=== PATIENT | female | born 1990 | race Caucasian/White ===

== ENCOUNTER 2019-09-03 00:15 | Emergency (ER) | payer SELFPAY ==
[2019-09-03] MEDS ORDERED: AMOXICILLIN/K CLAV 875/125MG TAB PO ONE (03:18)
[2019-09-03] MEDS ORDERED: ACETAMINOPHEN 500 MG TAB PO ONE (03:18)
[2019-09-03 04:16] LABS: Bacteria,Urine 1+ /HPF (Negative); Bilirubin,Urine NEG (Negative); Blood,Urine SM (Negative); Color,Urine Yellow (Yellow); Mucus,Urine 2+ /HPF; Protein,Urine <15 mg/dL mg/dL (Negative)
[2019-09-03 04:17] LABS: HCG Qualitative,Urine Negative (Negative)
--- NOTE | 2019-09-03 04:38 | Emergency Department Report ---
ED General Adult HPI - General Chief complaint: Dental/Oral Stated complaint: MOUTH PAIN Source: patient Mode of arrival: Ambulatory Limitations: No Limitations - History of Present Illness Initial comments: Patient is a 29-year-old white female with a history of CHF and endocarditis who presents to the ED with complaint of acute onset persistent severe painful swelling left mandibular gums and multiple dental caries as well as severely painful left mandibular premolar molar toothache for the last 1 week, worse in the last 2 days. Patient stated that she was unable to sleep tonight because of severe pain in the left mandible. Patient denies fever, chills, cough, chest pain, shortness of breath, headache, dizziness, syncope, sore throat, abdominal pain, nausea and vomiting. MD Complaint: swollen gums; dental pain -: Sudden, week(s) (1) Location: mouth Radiation: non-radiation Severity scale (0 -10): 6 Quality: aching, sharp Consistency: constant Improves with: none Worsens with: eating Associated Symptoms: denies other symptoms. denies: confusion, chest pain, cough, diaphoresis, fever/chills, headaches, loss of appetite, malaise, nausea/vomiting, rash, seizure, shortness of breath, syncope, weakness, other Treatments Prior to Arrival: none - Related Data Previous Rx's Medication Instructions Recorded Last Taken Type Clindamycin [Clindamycin CAP] 300 mg PO Q8HR #60 capsule 09/03/19 Unknown Rx Ketorolac [Toradol] 10 mg PO Q8H PRN #20 tablet 09/03/19 Unknown Rx Allergies Allergy/AdvReac Type Severity Reaction Status Date / Time diphenhydramine HCl Allergy Unknown Verified 01/28/16 00:34 [From Benadryl] ED Review of Systems ROS: Stated complaint: MOUTH PAIN Other details as noted in HPI Constitutional: denies: chills, fever Eyes: denies: eye pain, eye discharge, vision change ENT: throat pain (Swollen, painful left mandibular gums and premolar molar toothaches). denies: ear pain Respiratory: denies: cough, shortness of breath, wheezing Cardiovascular: denies: chest pain, palpitations Endocrine: no symptoms reported Gastrointestinal: denies: abdominal pain, nausea, diarrhea Genitourinary: denies: urgency, dysuria, discharge Musculoskeletal: denies: back pain, joint swelling, arthralgia Skin: denies: rash, lesions Neurological: denies: headache, weakness, paresthesias Psychiatric: denies: anxiety, depression Hematological/Lymphatic: denies: easy bleeding, easy bruising ED Past Medical Hx - Past Medical History Previous Medical History?: Yes Hx Congestive Heart Failure: Yes Additional medical history: Endocarditis - Surgical History Past Surgical History?: Yes Additional Surgical History: C-sections - Social History Smoking Status: Current Every Day Smoker Substance Use Type: None - Medications Home Medications: Home Medications Medication Instructions Recorded Confirmed Last Taken Type Clindamycin [Clindamycin CAP] 300 mg PO Q8HR #60 capsule 09/03/19 Unknown Rx Ketorolac [Toradol] 10 mg PO Q8H PRN #20 tablet 09/03/19 Unknown Rx ED Physical Exam - General Limitations: No Limitations General appearance: alert, in no apparent distress - Head Head exam: Present: atraumatic, normocephalic, normal inspection - Eye Eye exam: Present: normal appearance, PERRL, EOMI Pupils: Present: normal accommodation - ENT ENT exam: Present: mucous membranes moist, TM's normal bilaterally, normal external ear exam, other (Severely tender left mandibular premolar and molar teeth, severely tender swollen left mandibular gingiva) - Neck Neck exam: Present: normal inspection, full ROM, lymphadenopathy - Respiratory Respiratory exam: Present: normal lung sounds bilaterally. Absent: respiratory distress, wheezes, rales, rhonchi, chest wall tenderness, accessory muscle use, decreased breath sounds, prolonged expiratory - Cardiovascular Cardiovascular Exam: Present: normal rhythm, tachycardia, normal heart sounds. Absent: systolic murmur, diastolic murmur, rubs, gallop - GI/Abdominal GI/Abdominal exam: Present: soft, normal bowel sounds. Absent: tenderness, guarding, rebound, hyperactive bowel sounds, hypoactive bowel sounds, organomegaly - Extremities Exam Extremities exam: Present: normal inspection, full ROM, normal capillary refill - Back Exam Back exam: Present: normal inspection, full ROM. Absent: tenderness, CVA tende rness (R), CVA tenderness (L), muscle spasm, paraspinal tenderness, vertebral tenderness - Neurological Exam Neurological exam: Present: alert, oriented X3, CN II-XII intact, normal gait, reflexes normal - Psychiatric Psychiatric exam: Present: normal affect, normal mood - Skin Skin exam: Present: warm, dry, intact, normal color. Absent: rash ED Course Vital Signs 09/03/19 00:38 Temperature 99.3 F Pulse Rate 109 H Respiratory 18 Rate Blood Pressure 95/59 O2 Sat by Pulse 98 Oximetry ED Medical Decision Making - Medical Decision Making This is a 29-year-old white female with a history of CHF and endocarditis who presents to the ED with complaint of acute onset persistent severe painful swelling left mandibular gums and multiple dental caries as well as severely painful left mandibular premolar molar toothache for the last 1 week, worse in the last 2 days. Patient stated that she was unable to sleep tonight because of severe pain in the left mandible. In the ED, patient is alert and oriented x3 and is not in any distress. Patient is however tachycardic in triage and appears to be in pain. Patient was treated for pain in the ED and also given initial oral antibiotics. Urinalysis is unremarkable and patient was discharged home on pain medication and antibiotics and advised to follow-up with her dentist in 7 to 10 days for reevaluation or return to the ED immediately if symptoms get worse. - Differential Diagnosis dental abscess; gingivitis; dental caries Critical care attestation.: If time is entered above; I have spent that time in minutes in the direct care of this critically ill patient, excluding procedure time. ED Disposition Clinical Impression: Dental abscess, Acute gingival disease, Dental caries Disposition: - TO HOME OR SELFCARE Is pt being admited?: No Does the pt Need Aspirin: No Condition: Stable Instructions: Dental Abscess (ED), Gingivitis (ED), Dental Caries (ED) Additional Instructions: Take medication with food, drink plenty of fluids and follow-up with your dentist in 7 to 10 days for reevaluation. Return to the ED immediately if symptoms get worse. Prescriptions: Clindamycin [Clindamycin CAP] 300 mg PO Q8HR #60 capsule Ketorolac [Toradol] 10 mg PO Q8H PRN #20 tablet PRN Reason: Pain Referrals: [facility] [Outside] - 3-5 Days Time of Disposition: 04:40 Print Language: ICELANDIC
[2019-09-03 05:17] VITALS: BP 102/64
== END 2019-09-03 05:12 | disposition home or self-care (01) ==
LOC: ED 00:15
DX: K02.9 Dental caries, unspecified (principal); K05.00 Acute gingivitis, plaque induced; K04.7 Periapical abscess without sinus; I50.9 Heart failure, unspecified; F17.200 Nicotine dependence, unspecified, uncomplicated; Z98.890 Other specified postprocedural states; Z88.1 Allergy status to other antibiotic agents
CPT/HCPCS: 81001; 81025; 87086; 99283